=== PATIENT | female | born 1985 | race Caucasian/White ===

== ENCOUNTER 2017-02-01 00:46 | Inpatient (IN) | payer OTHER ==
[~2017-02-01] VITALS: Ht 160 cm; Wt 54.4 kg
[~2017-02-01 00:46] MED LIST: CIPROFLOXACIN500 MG PO; NKHM; SYNTHROID,LEV175 MCG PO; TRAMADOL HCL50 MG PO; VICODIN 500 MG-1 TAB PO
[2017-02-01 00:55] VITALS: BP 151/84
[2017-02-01 01:27] LABS: BASO % 0.2 % (0.0-1.0); EOS % 0.2 % (1.0-4.0); HEMOGLOBIN 7.9 g/dl (12.0-16.0); LYMPH # 1.2 10*3/uL (1.3-4.4); LYMPH % 7.2 % (27.0-41.0); MEAN CELL VOLUME 68.7 fl (81.0-99.0); MEAN CORPUSCULAR HGB 21.7 pg (27.0-31.0); MEAN CORPUSCULAR HGB CONC 31.6 g/dl (33.0-37.0); MEAN PLATELET VOLUME 10.6 fl (9.6-12.3); MONO # 0.8 10*3/uL (0.1-1.0); MONO % 4.9 % (3.0-9.0); NEUT # 14.6 10*3/uL (2.3-7.9); NEUT % 86.7 % (47.0-73.0); NUCLEATED RED BLOOD CELL 0.1 10*3/uL (0.0-0.0); NUCLEATED RED BLOOD CELL 0.3 % (0.0-0.0); PLATELET COUNT AUTOMATED 178 10*3/uL (130-400); RED BLOOD COUNT 3.64 10*6/uL (4.10-5.10); RED CELL DISTRI WIDTH 16.5 % (0-14.5); WHITE BLOOD COUNT 16.8 10*3/uL (4.8-10.8)
[2017-02-01 01:43] LABS: BUN 10 mg/dl (7-24); CHLORIDE 93 mmol/L (98-107); CREATININE 0.92 mg/dL (0.55-1.02); POTASSIUM 3.1 mmol/L (3.5-5.1); SODIUM 131 mmol/L (136-145)
[2017-02-01 01:48] LABS: B-hCG (QUALITATIVE) NEGATIVE (NEGATIVE)
[2017-02-01 03:01] LABS: ALBUMIN 1.8 gm/dl (3.1-4.5); TOTAL PROTEIN 6.9 gm/dL (6.4-8.2)
[2017-02-01 03:03] LABS: BILIRUBIN, DIRECT 0.4 mg/dL (0.0-0.2)
[2017-02-01 03:09] LABS: THYROID STIM HORMONE (HS) 12.2 uIU/ml (0.358-4.75)
[2017-02-01 03:18] LABS: BILIRUBIN 1+ (NEGATIVE); BLOOD 2+ (NEGATIVE); CLARITY CLOUDY (CLEAR); COLOR YELLOW (YELLOW); GLUCOSE NEGATIVE (NEGATIVE); KETONE NEGATIVE (NEGATIVE); LEUKO ESTERASE 3+ (NEGATIVE); NITRITE NEGATIVE (NEGATIVE); PH 6.5 (5.0-9.0); SPECIFIC GRAVITY <= 1.005 (1.005-1.030)
[2017-02-01 03:30] LABS: URINE AMPHETAMINES < 1000 (1000ng/ml); URINE BARBITURATES < 200 (200ng/ml); URINE BENZODIAZEPINES < 200 (200ng/ml); URINE CANNABINOIDS (THC) > 50 (50ng/ml); URINE COCAINE > 300 (300ng/ml); URINE METHADONE < 300 (300ng/ml); URINE OPIATES < 300 (300ng/ml)
[2017-02-01 03:31] LABS: BACTERIA 3+; WBC TNTC wbc/hpf (0-5)
[2017-02-01 03:33] LABS: URINE PHENCYCLIDINE < 25 (25ng/ml)
[2017-02-01 04:34] VITALS: BP 112/76
--- NOTE | 2017-02-01 07:04 | NUR ---
PT REFUSES IV CONTRAST FOR TESTING.
[2017-02-01 07:52] VITALS: BP 113/71
--- NOTE | 2017-02-01 07:52 | NUR ---
PT RESTING, ON CELL PHONE. NO COMPLAINTS.
--- NOTE | 2017-02-01 07:56 | NUR ---
2 UNITS PRBC IN BLOOD BANK/HOLD FOR PT.
--- NOTE | 2017-02-01 08:57 | NUR ---
MEDICATE WITH ATIVAN FOR ANXIETY. PT DENIES PAIN AT THIS TIME.
[2017-02-01 10:27] VITALS: BP 118/70
--- NOTE | 2017-02-01 10:52 | NUR ---
RESTING IN BED, EYES CLOSED. NO DISTRESS.
[2017-02-01 11:03] VITALS: BP 97/56
--- NOTE | 2017-02-01 11:20 | NUR ---
AFTER REPORT GIVEN TO [facility]. PER [facility] PT IS TO REMIN ON UNIT UNTIL A NEGATIVE AIR FLOW ROOM CAN BE PREPARED.
[2017-02-01 12:00] VITALS: BP 123/86
--- NOTE | 2017-02-01 12:00 | NUR ---
A 31, admitted to [facility], under the services of VIANEY Guerrero DO with a diagnosis of BILAT PNEUMONIA. Chief complaint is COUGH, FEVER. Patient arrived via wheel chair from ER. Monitor applied. Initial assessment completed. Vital signs taken and recorded. VIANEY GUERRERO DO notified of admission to the unit. Orders received. See assessment for past medical history, medications and allergies. Patient and/or family oriented to unit. [facility] visitation policy reviewed. Clothing/patient valuable form completed. KARINA VALERO
[2017-02-01] MEDS ORDERED: LEVOFLOXAC750 MG/150 IV (12:21)
[2017-02-01] MEDS ORDERED: MERREM IV1 GM IV (12:21)
[2017-02-01] MEDS ORDERED: ENOXAPARIN40 MG/0.2 SC (12:21)
[2017-02-01] MEDS ORDERED: Synthroid,Levo25 MCG PO (12:21)
[2017-02-01] MEDS ORDERED: DUONEB 3 MG/3 ML3 M1 NEB (12:21)
[2017-02-01] MEDS ORDERED: AMERINET CHOICE1 GM IV (12:21)
[2017-02-01] MEDS ORDERED: BUPRENORPHINE HY2 MG SL ×2 (12:21)
--- NOTE | 2017-02-01 14:55 | NUR ---
DISCHARGED TO [facility] VIA [facility].
[2017-02-02 07:06] LABS: HIV 1+2 AB + HIV1 P24 AG Non Reactive (Non Reactive)
[2017-02-02 07:06] LABS: COMPLEMENT C4 001834 8 mg/dL (14-44)
[2017-02-02 16:09] LABS: ATYPICAL PANCA <1:20 titer (Neg:<1:20); CYTOPLASMIC (C-ANCA) <1:20 titer (Neg:<1:20); PERINUCLEAR (P-ANCA) <1:20 titer (Neg:<1:20)
== END 2017-02-01 14:55 | disposition short-term general hospital (02) | DRG 871 ==
LOC: ED 00:46 → 4E 04:13 → EDHOLD 04:13 → 4E 08:53 → ICCU 10:49
PROVIDERS: Emergency Medicine Emergency Medical Services; Internal Medicine; ADMIT Internal Medicine
DX: A41.9 Sepsis, unspecified organism (principal); J18.9 Pneumonia, unspecified organism; E87.2 Acidosis; E46 Unspecified protein-calorie malnutrition; E87.1 Hypo-osmolality and hyponatremia; A59.9 Trichomoniasis, unspecified; N39.0 Urinary tract infection, site not specified; D50.9 Iron deficiency anemia, unspecified; F14.10 Cocaine abuse, uncomplicated; F11.10 Opioid abuse, uncomplicated; R65.20 Severe sepsis without septic shock; E87.6 Hypokalemia; F41.0 Panic disorder [episodic paroxysmal anxiety]; Z88.2 Allergy status to sulfonamides; Z88.7 Allergy status to serum and vaccine; Z79.899 Other long term (current) drug therapy; Z98.51 Tubal ligation status; Z80.9 Family history of malignant neoplasm, unspecified; Z72.0 Tobacco use; Z68.21 Body mass index [BMI] 21.0-21.9, adult

== ENCOUNTER 2019-02-17 15:15 | Inpatient (IN) | payer OTHER ==
[~2019-02-17] VITALS: Ht 160 cm; Wt 58.5 kg
[~2019-02-17 15:15] MED LIST changes: +AMERINET CHOICE1 GM IV; +BUPRENORPHINE HY2 MG SL; +CIPROFLOXACIN750 MG PO; +DUONEB 3 MG/3 ML3 M1 NEB; +ENOXAPARIN40 MG/0.2 SC; +IMODIUM A-D2 M2 PO; +LEVOFLOXAC750 MG/150 IV; +MERREM IV1 GM IV; +Synthroid,Levo25 MCG PO
--- NOTE | 2019-02-17 16:43 | NUR ---
33 year old FEMALE admitted to room # 428 for stabilization. Reports an addiction to HEROIN,FENTYNAL last used 24 hours prior to admission. Compliant with admission procedure. Patient denies any anxiety, able to sit still able to focus eyes on nurse during interview.PT HAS SCATTERED SCABBED AREAS TO ARMS AND ONE OPEN AREA ON BACK, PT DOES NOT WANT PHOTOGRAPHED OR MEASURED AT THIS TIME. See assessment forms for additional information about patient status.
--- NOTE | 2019-02-17 16:55 | NUR ---
DR. CHAVEZ IN TO SEE PATIENT. AWARE OF AREAS ON RIGHT ARM AND BACK WHERE PATIENT "PICKS". AWARE THAT PATIENT USED CRACK YESTERDAY AND HAS A HISTORY OF ENDOCARDITIS JAN 2017. PT AWARE NEED URINE SAMPLE. [facility] ASSESSMENT COMPELTE. PT AWARE OF POLICY TO NOT LEAVE FLOOR.
[2019-02-17 16:59] VITALS: BP 123/83
--- NOTE | 2019-02-17 17:26 | NUR ---
PATIENT MEETS [facility]. CINA=17. PATIENT WANTS RESIDENTIAL TREATMENT AT [facility] FOR HER AFTERRCARE PLAN. 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
[2019-02-17] MEDS ORDERED: Synthroid,Lev150 MCG PO (17:37)
[2019-02-17 17:40] LABS: BILIRUBIN NEGATIVE (NEGATIVE); BLOOD 2+ (NEGATIVE); CLARITY CLEAR (CLEAR); COLOR YELLOW (YELLOW); GLUCOSE NEGATIVE (NEGATIVE); KETONE NEGATIVE (NEGATIVE); LEUKO ESTERASE NEGATIVE (NEGATIVE); NITRITE NEGATIVE (NEGATIVE); SPECIFIC GRAVITY 1.015 (1.005-1.030); UROBILINOGEN 0.2 E.U./dl (0.2-1.0)
[2019-02-17 17:42] LABS: BASO # 0.1 10*3/uL (0.0-0.1); BASO % 0.5 % (0.0-1.0); EOS # 0.1 10*3/uL (0.0-0.4); EOS % 0.7 % (1.0-4.0); HEMATOCRIT 45.2 % (37.0-47.0); HEMOGLOBIN 14.8 g/dl (12.0-16.0); LYMPH # 3.3 10*3/uL (1.3-4.4); LYMPH % 31.1 % (27.0-41.0); MEAN CELL VOLUME 87.1 fl (81.0-99.0); MEAN CORPUSCULAR HGB 28.5 pg (27.0-31.0); MEAN CORPUSCULAR HGB CONC 32.7 g/dl (33.0-37.0); MEAN PLATELET VOLUME 9.4 fl (9.6-12.3); MONO # 0.5 10*3/uL (0.1-1.0); MONO % 4.2 % (3.0-9.0); NEUT # 6.7 10*3/uL (2.3-7.9); NEUT % 62.6 % (47.0-73.0); PLATELET COUNT AUTOMATED 349 10*3/uL (130-400); RED BLOOD COUNT 5.19 10*6/uL (4.10-5.10); WHITE BLOOD COUNT 10.7 10*3/uL (4.8-10.8)
[2019-02-17 17:47] LABS: URINE AMPHETAMINES < 1000 (1000ng/ml); URINE BARBITURATES < 200 (200ng/ml); URINE BENZODIAZEPINES < 200 (200ng/ml); URINE CANNABINOIDS (THC) < 50 (50ng/ml); URINE COCAINE > 300 (300ng/ml); URINE METHADONE < 300 (300ng/ml); URINE OPIATES < 300 (300ng/ml)
[2019-02-17 17:49] LABS: URINE PHENCYCLIDINE < 25 (25ng/ml)
[2019-02-17 17:52] LABS: ALBUMIN 4.4 gm/dl (3.1-4.5); ALKALINE PHOSPHATASE 78 U/L (45-117); BUN 9 mg/dl (7-24); CHLORIDE 101 mmol/L (98-107); CREATININE 1.51 mg/dL (0.55-1.02); POTASSIUM 2.9 mmol/L (3.5-5.1); SGOT/AST 100 IU/L (3-35); SGPT/ALT 49 U/L (12-78); SODIUM 135 mmol/L (136-145); TOTAL PROTEIN 8.5 gm/dL (6.4-8.2)
[2019-02-17 17:54] LABS: ETHYL ALCOHOL < 3.0 mg/dl (<3)
[2019-02-17 17:55] LABS: BETA-HCG, QUANT < 1.0 mIU/mL (1-3)
[2019-02-17 18:09] LABS: BACTERIA 4+; MUCOUS TRACE; WBC 0-2 wbc/hpf (0-5)
--- NOTE | 2019-02-17 19:23 | NUR ---
PATIENT REMINDED TO NOT LEAVE THE FLOOR. VERBALIZED UNDERSTANDING
--- NOTE | 2019-02-17 19:23 | NUR ---
PATIENT RESTING IN BED C/P GENERALIZED PAIN, ABD CRAMPS, AND SLEEPLESSNESS. ALSO STATES SHE DOES NOT WANT HER FLU SHOT RIGHT NOW. SHE WOULD RATHER HAVE IN BEFORE DISCHARGE
[2019-02-17 20:00] VITALS: BP 108/80
--- NOTE | 2019-02-17 20:37 | NUR ---
MEDICATED WITH PRN MOTRIN FOR GENERALIZED PAIN,BENTYL FOR ABD PAIN, AND TRAZADONE FOR SLEEPLESSNESS. WILL MONITOR
[2019-02-18] VITALS: BP 100/67
--- NOTE | 2019-02-18 03:13 | NUR ---
PATIENT RESTING IN BED WITH NO S/S OF DISTRESS. BED IN LOWEST POSITION, CALL LIGHT IN REACH
[2019-02-18 07:15] LABS: CREATININE 1.7 mg/dL (0.55-1.02); POTASSIUM 3.1 mmol/L (3.5-5.1)
[2019-02-18 07:49] LABS: HEMATOCRIT 41.6 % (37.0-47.0); HEMOGLOBIN 13.9 g/dl (12.0-16.0); MEAN CELL VOLUME 86.8 fl (81.0-99.0); MEAN CORPUSCULAR HGB CONC 33.4 g/dl (33.0-37.0); MEAN PLATELET VOLUME 10.1 fl (9.6-12.3); PLATELET COUNT AUTOMATED 313 10*3/uL (130-400); RED BLOOD COUNT 4.79 10*6/uL (4.10-5.10); RED CELL DISTRI WIDTH 15.1 % (0-14.5); WHITE BLOOD COUNT 14.7 10*3/uL (4.8-10.8)
[2019-02-18 08:00] VITALS: BP 99/66
[2019-02-18 08:04] LABS: PLATELET SUFFICIENCY NORMAL (NORMAL); TOTAL CELLS COUNTED 100 #CELLS
--- NOTE | 2019-02-18 08:12 | NUR ---
JAKE ALBARRAN [id number] Please refer to the physician's history and physical for past medical history, comorbid conditions, and allergies. Diagnosis: OPIATE WITHDRAWAL Lazaro Score: 23,LOW OR NO RISK WOUND DESCRIPTIONS: Wound Number: 1 Location of the wound: right upper arm Thickness: Full Size: 1.5cm x 2.0cm x <0.1cm Tunneling: none Undermining: none Sinus Tract: none Presence of Exudate: none Amount: None Color: Yellow, red, brown Odor: None Periwound Skin Appearance: Erythema Wound edges: approximated Pain (associated with wound): tender to touch How does patient state this happened? pt stated this started a couple days ago from picking and it is getting worse. Patient is requesting that this area be drained and stated once area is drained she will care for it at home Patient has multiple intact scabbed areas noted to bilateral upper arms, bilateral lower extremities and face at time of assessment. This is what patient let us view at time of assessment. Surface the patient is resting on: Position Pro SKIN PREVENTION RECOMMENDATION: 1. Pressure redistribution support surface as appropriate 2. Elevate heels 3. Remove boots/TEDS every shift and reapply 4. Head of bed 30 degrees as tolerated 5. Assess nutrition and hydration 6. Manage moisture 7. Avoid the use of containment devices while in bed 8. Use absorptive products on surfaces limit layers of linens on bed 9. Turn and reposition every 1-2 hours in bed and every 1 hour in chair as tolerated 10. Weight shifts every 15 minutes while up in chair 11. Offloading with pillows or device to keep heels elevated off bed 12. Monitor skin at least every shift 13. Inspect under medical devices twice a day WOUND TREATMENT RECOMMENDATIONS: Consult Dr. Robert for possible I&D per patient request. Apply warm compresses to right upper arm QID. Cleanse affected areas with soap and water and apply aquaphor ointment daily.
--- NOTE | 2019-02-18 09:03 | NUR ---
Dr. Singh notified of wound care recommendations.
--- NOTE | 2019-02-18 11:00 | NUR ---
ASSUMED CARE FOR THIS PT AT THIS TIME. LENA SHAIKH TO PERFORM BEDSIDE I&D OF ABSCESS TO RT SHOULDER. PT AWARE. CONSENT SIGNED.
--- NOTE | 2019-02-18 11:30 | NUR ---
TOSHIA SHAIKH PERFORMED I&D AT BEDSIDE TO ABSCESS ON RT SHOULDER. SMALL AMOUNT OF PURULENT DRAINAGE NOTED. AREA HARD TO PALPATE. LARGE BANDAID APPLIED TO AREA. WARM COMPRESS APPLIED PER ORDER. WILL MONITOR FOR DRAINAGE AND S/S OF INFECTION. PT TOLERATED PROCEDURE WELL. CALL LIGHT IN REACH.
--- NOTE | 2019-02-18 12:30 | NUR ---
PT MEDICATED W/ZOFRAN FOR C/O NAUSEA AND BENTYL FOR STOMACH CRAMPS. PT EATING LUNCH AT THIS TIME.
--- NOTE | 2019-02-18 14:42 | NUR ---
PATIENT WAS ACCEPTED TO [facility] FOR [facility] SUNDAY, HOWEVER PATIENT REPORTED THAT SHE HAS COURT THAT DAY AND IS UNABLE TO GO THAT DAY. [facility] TOOK HER OFF THE SCHEDULE AND PUT HER ON THE WAITING LIST. [facility] STAFF OFFERED HER OTHER REFERRAL OPTIONS, HOWEVER PATIENT DECLINED AND STATED THAT SHE WILL JUST CALL [facility] WHEN SHE IS AVAILABLE AND SET UP TRANSPORTATION ON HER OWN. 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
--- NOTE | 2019-02-18 15:35 | NUR ---
PATIENT C/O MUSCLE ACHES AND ANXIETY. MEDICATED WITH MOTRIN,VISTARIL, AND ROBAXIN PER PRN ORDERS. WILL CONTINUE TO MONITOR.
[2019-02-18 16:00] VITALS: BP 107/60
--- NOTE | 2019-02-18 17:00 | NUR ---
PATIENT RESTING QUIETLY. NO FURTHER C/O AT THIS TIME. EARLIER MEDICATIONS EFFECTIVE.
[2019-02-19] VITALS: BP 112/70
--- NOTE | 2019-02-19 04:00 | NUR ---
PATIENT MEDICATED WITH PRN VISTARIL FOR ANXIOUSNESS AND ROBAXIN FOR MUSCLE ACHES. WILL MONITOR
[2019-02-19 07:10] LABS: CREATININE 1.25 mg/dL (0.55-1.02); POTASSIUM 3.9 mmol/L (3.5-5.1)
[2019-02-19 08:00] VITALS: BP 106/72
--- NOTE | 2019-02-19 09:45 | NUR ---
Dr. Singh notified of wound care recommendations
--- NOTE | 2019-02-19 11:10 | NUR ---
VISTARIL GIVEN FOR C/O ANXIETY. ROBAXIN GIVEN FOR C/O MUSCLE ACHES. WILL MONITOR.
--- NOTE | 2019-02-19 11:55 | NUR ---
VISTARIL AND ROBAXIN APPEAR EFFECTIVE. PT RESTING QUIETLY IN BED WITH EYES CLOSED.
--- NOTE | 2019-02-19 12:38 | NUR ---
Nutritional Support Services Note: Appetite is good for meals. Regular diet as ordered. Eating 100%. Will provide a night snack to help increase kcal and protein to promote healing. Will follow as needed. Erna Sanford Rdn Ld
[2019-02-19 16:00] VITALS: BP 100/68
--- NOTE | 2019-02-19 19:43 | NUR ---
PATIENT IS AAOX3 RESTING IN BED WITH EASY AND REGULAR RESPERS ON ROOM AIR. ASSESSMENT IS COMPLETE WITH NO S/S OF WITHDRAWL NOTED AT THIS TIME. DURING BEDSIDE REPORT PATIENT C/O MUSCLE ACHES AND ANXIETY, PRN ROBAXIN, MOTRIN, AND VISTARIL PROVIDED AT THIS TIME. BED IS LOW, LOCKED, AND CALL LIGHT IS WITHIN REACH. WILL CONTINUE TO MONITOR SEE SHIFT ASSESSMENT.
[2019-02-20] VITALS: BP 100/70
--- NOTE | 2019-02-20 03:14 | NUR ---
24 HR chart check completed.
[2019-02-20 08:00] VITALS: BP 120/82
--- NOTE | 2019-02-20 10:02 | NUR ---
Dr. Singh notified of wound care recommendations.
[2019-02-20] MEDS ORDERED: DOXYCYCLINE100 M3 PO (10:12)
--- NOTE | 2019-02-20 10:58 | NUR ---
DISCHARGE INFORMATION EXPLAINED TO PATIENT ALL QUESTIONS ANSWERED AT THIS TIME. ANTIBIOTIC SCRIPT GIVEN TO PATIENT. DISCHARGE PACKET WITH PATIENT AND ALL BELONGINGS, LEFT AMBULATORY WITH HER MOTHER. DISCHARGE PHOTO TAKEN OF RIGHT SHOULDER I&D.
== END 2019-02-20 10:58 | disposition home or self-care (01) | DRG 773 ==
LOC: 4E 15:15
PROVIDERS: Internal Medicine; ADMIT Internal Medicine
PROC: 0X920ZZ Drainage of Right Shoulder Region, Open Approach (ICD-10-PCS; principal; 2019-02-20)
DX: F11.23 Opioid dependence with withdrawal (principal); F14.10 Cocaine abuse, uncomplicated; F41.0 Panic disorder [episodic paroxysmal anxiety]; E03.9 Hypothyroidism, unspecified; F42.4 Excoriation (skin-picking) disorder; E87.6 Hypokalemia; R74.0 Nonspecific elevation of levels of transaminase and lactic acid dehydrogenase [LDH]; F17.219 Nicotine dependence, cigarettes, with unspecified nicotine-induced disorders; L02.413 Cutaneous abscess of right upper limb; B19.20 Unspecified viral hepatitis C without hepatic coma; N18.3 Chronic kidney disease, stage 3 (moderate); E87.1 Hypo-osmolality and hyponatremia; Z71.6 Tobacco abuse counseling; Z98.891 History of uterine scar from previous surgery; Z98.51 Tubal ligation status; Z80.8 Family history of malignant neoplasm of other organs or systems; Z88.2 Allergy status to sulfonamides; Z88.7 Allergy status to serum and vaccine; Z79.890 Hormone replacement therapy; E87.8 Other disorders of electrolyte and fluid balance, not elsewhere classified

== ENCOUNTER 2019-04-17 16:23 | Inpatient (IN) | payer OTHER ==
[~2019-04-17] VITALS: Ht 160 cm; Wt 61.2 kg
[~2019-04-17 16:23] MED LIST changes: +DOXYCYCLINE100 M3 PO; +Synthroid,Lev150 MCG PO
[2019-04-17 17:30] VITALS: BP 110/76
[2019-04-17 17:34] LABS: BASO # 0.1 10*3/uL (0.0-0.1); BASO % 0.4 % (0.0-1.0); EOS # 0.2 10*3/uL (0.0-0.4); EOS % 1.9 % (1.0-4.0); HEMOGLOBIN 14.3 g/dl (12.0-16.0); LYMPH # 3.2 10*3/uL (1.3-4.4); LYMPH % 28.6 % (27.0-41.0); MEAN CELL VOLUME 88.5 fl (81.0-99.0); MEAN CORPUSCULAR HGB 29.4 pg (27.0-31.0); MEAN CORPUSCULAR HGB CONC 33.3 g/dl (33.0-37.0); MEAN PLATELET VOLUME 10.1 fl (9.6-12.3); MONO # 0.8 10*3/uL (0.1-1.0); MONO % 6.9 % (3.0-9.0); NEUT % 61.9 % (47.0-73.0); PLATELET COUNT AUTOMATED 277 10*3/uL (130-400); RED BLOOD COUNT 4.86 10*6/uL (4.10-5.10); RED CELL DISTRI WIDTH 13.6 % (0-14.5); WHITE BLOOD COUNT 11.3 10*3/uL (4.8-10.8)
[2019-04-17 17:49] LABS: ALBUMIN 3.9 gm/dl (3.1-4.5); ALKALINE PHOSPHATASE 57 U/L (45-117); BUN 9 mg/dl (7-24); CHLORIDE 107 mmol/L (98-107); CREATININE 1.21 mg/dL (0.55-1.02); ETHYL ALCOHOL < 3.0 mg/dl (<3); POTASSIUM 3.3 mmol/L (3.5-5.1); SGOT/AST 37 IU/L (3-35); SGPT/ALT 49 U/L (12-78); SODIUM 140 mmol/L (136-145); TOTAL PROTEIN 7.4 gm/dL (6.4-8.2)
[2019-04-17 18:02] LABS: BETA-HCG, QUANT < 1.0 mIU/mL (1-3)
[2019-04-17 18:16] LABS: BILIRUBIN 1+ (NEGATIVE); BLOOD 1+ (NEGATIVE); CLARITY CLEAR (CLEAR); COLOR YELLOW (YELLOW); GLUCOSE NEGATIVE (NEGATIVE); KETONE NEGATIVE (NEGATIVE); LEUKO ESTERASE NEGATIVE (NEGATIVE); NITRITE NEGATIVE (NEGATIVE); SPECIFIC GRAVITY >= 1.030 (1.005-1.030); UROBILINOGEN 0.2 E.U./dl (0.2-1.0)
[2019-04-17 18:25] LABS: URINE AMPHETAMINES < 1000 (1000ng/ml); URINE BARBITURATES < 200 (200ng/ml); URINE BENZODIAZEPINES < 200 (200ng/ml); URINE CANNABINOIDS (THC) < 50 (50ng/ml); URINE COCAINE > 300 (300ng/ml); URINE METHADONE < 300 (300ng/ml); URINE OPIATES > 300 (300ng/ml); URINE PHENCYCLIDINE < 25 (25ng/ml)
[2019-04-17 18:29] LABS: EPITHELIAL CELLS 51-100
[2019-04-17 18:30] LABS: MUCOUS 3+; WBC 0-2 wbc/hpf (0-5)
[2019-04-17 20:00] VITALS: BP 104/66
[2019-04-18] VITALS: BP 108/72
[2019-04-18 08:00] VITALS: BP 96/57
[2019-04-18 12:00] VITALS: BP 110/59
[2019-04-18 16:00] VITALS: BP 112/73
[2019-04-18 20:00] VITALS: BP 107/69
[2019-04-19] VITALS: BP 103/66
[2019-04-19 08:00] VITALS: BP 97/72
[2019-04-19 12:00] VITALS: BP 110/76
[2019-04-19 16:00] VITALS: BP 109/66
== END 2019-04-19 18:03 | disposition left against medical advice (07) | DRG 770 ==
LOC: 5E 16:23
PROVIDERS: ADMIT Family Medicine
DX: F11.23 Opioid dependence with withdrawal (principal); F14.10 Cocaine abuse, uncomplicated; E87.6 Hypokalemia; F17.219 Nicotine dependence, cigarettes, with unspecified nicotine-induced disorders; F41.0 Panic disorder [episodic paroxysmal anxiety]; Z53.29 Procedure and treatment not carried out because of patient's decision for other reasons; N18.3 Chronic kidney disease, stage 3 (moderate); D72.829 Elevated white blood cell count, unspecified; R74.0 Nonspecific elevation of levels of transaminase and lactic acid dehydrogenase [LDH]; E03.9 Hypothyroidism, unspecified; Z88.2 Allergy status to sulfonamides; Z71.6 Tobacco abuse counseling; Z88.7 Allergy status to serum and vaccine; Z79.899 Other long term (current) drug therapy

== ENCOUNTER → 2019-12-24 | Outpatient (CLI) | payer OTHER ==
[2019-12-24 12:02] LABS: HEMATOCRIT 40.3 % (37.0-47.0); MEAN CELL VOLUME 85.7 fl (81.0-99.0); MEAN CORPUSCULAR HGB 27.2 pg (27.0-31.0); MEAN CORPUSCULAR HGB CONC 31.8 g/dl (33.0-37.0); MEAN PLATELET VOLUME 10.3 fl (9.6-12.3); RED BLOOD COUNT 4.7 10*6/uL (4.10-5.10); WHITE BLOOD COUNT 11.1 10*3/uL (4.8-10.8)
[2019-12-24 12:30] LABS: CHLORIDE 102 mmol/L (98-107); POTASSIUM 3.1 mmol/L (3.5-5.1); SODIUM 138 mmol/L (136-145)
[2019-12-24 12:50] LABS: ALBUMIN 2.7 gm/dl (3.1-4.5); ALKALINE PHOSPHATASE 75 U/L (45-117); BUN 6 mg/dl (7-24); CHOLESTEROL 107 mg/dL (<200); CREATININE 0.83 mg/dL (0.55-1.02); HDL CHOLESTEROL 35 mg/dl (40-60); LDL CHOLESTEROL 49 mg/dL (9-159); SGOT/AST 24 IU/L (3-35); SGPT/ALT 20 U/L (12-78); THYROID STIM HORMONE (HS) 0.193 uIU/ml (0.358-4.75); TOTAL PROTEIN 6.5 gm/dL (6.4-8.2); TRIGLYCERIDES 117 mg/dl (<150); VLDL CHOLESTEROL 23 mg/dL (6-40)
== END | disposition home or self-care (01) ==
LOC: LAB 11:14
PROVIDERS: Internal Medicine
DX: E03.9 Hypothyroidism, unspecified (principal)